=== PATIENT | female | born 2005 | race Hispanic/Latino ===

== ENCOUNTER 2023-08-14 15:56 | Emergency (ER) | payer OTHER ==
[~2023-08-14] VITALS: Ht 154.9 cm; Wt 72.6 kg
[2023-08-14 16:36] VITALS: BP 119/69; PULSE 97; RESP 16
[2023-08-14 17:49] LABS: BASOPHILS # (AUTO) 0.03 K/uL (0.00-0.20); BASOPHILS % (AUTO) 0.3 % (0.0-5.0); EOSINOPHILS # (AUTO) 0.12 K/uL (0.00-0.70); EOSINOPHILS % (AUTO) 1.3 % (0.0-8.0); HEMATOCRIT 36.4 % (36-48); IMMATURE GRANULOCYTE ABSOLUTE 0.01 K/uL (0-1); LYMPHOCYTES # (AUTO) 2.9 K/uL (1.0-4.8); LYMPHOCYTES % (AUTO) 32.3 % (21.0-51.0); MEAN CORPUSCULAR HEMOGLOBIN 26.1 pg (27.0-33.0); MEAN CORPUSCULAR VOLUME 79.3 fL (80-100); MONOCYTES # (AUTO) 0.4 K/uL (0.1-1.0); MONOCYTES % (AUTO) 4.9 % (3.0-13.0); NEUTROPHILS # (AUTO) 5.5 K/uL (1.8-7.7); NEUTROPHILS % (AUTO) 61.1 % (40.0-77.0); PLATELET COUNT (AUTO) 409 K/uL (130-400); RED BLOOD CELL COUNT(AUTO) 4.59 MIL/uL (4.00-5.50); RED CELL DISTRIBUTION WIDTH 13.7 % (11.0-15.5); WHITE BLOOD COUNT (AUTO) 8.9 K/uL (4.8-10.8)
[2023-08-14 17:56] LABS: CREATININE 0.6 mg/dL (0.5-1.0); POTASSIUM 3.8 mmol/L (3.5-5.1)
[2023-08-14 18:00] LABS: ALBUMIN 3.8 g/dL (3.5-5.0); BILIRUBIN,TOTAL 0.3 mg/dL (0.2-1.0); TOTAL PROTEIN, SERUM 7.2 g/dL (6.0-8.3)
[2023-08-14 18:37] LABS: APPEARANCE,URINE CLOUDY (CLEAR); BILIRUBIN,URINE NEGATIVE (NEGATIVE); COLOR,URINE LIGHT-YELLOW (YELLOW); GLUCOSE, URINE (UA) NEGATIVE (NEGATIVE); KETONES,URINE 20 mg/dL (NEGATIVE); LEUKOCYTE ESTERASE ,URINE NEGATIVE Leu/uL (NEGATIVE); NITRATE,URINE NEGATIVE (NEGATIVE); OCCULT BLOOD,URINE NEGATIVE (NEGATIVE); PH,URINE 7.5 (5.0-8.0); PROTEIN,URINE NEGATIVE (NEGATIVE); UROBILINOGEN,URINE 0.2 mg/dL (0.2-1.0)
[2023-08-14 18:44] LABS: ADD UA MICROSCOPIC YES
[2023-08-14 18:46] LABS: BACTERIA,URINE RARE /HPF (None Seen); HCG,QUALITATIVE URINE NEGATIVE (NEGATIVE); MUCUS,URINE RARE LPF (None Seen); SQUAMOUS EPITHELIAL CELL,UR FEW /HPF (0-2)
[2023-08-14] MEDS: 0.9%NACL 1000ML 1,000 ML IV ONE (19:08)
[2023-08-14] MEDS: ONDANSETRON 4MG INJ IVP ONE (19:09)
[2023-08-14] MEDS: MORPHINE 2 MG SYG IVP ONE (19:09)
[2023-08-14] MEDS ORDERED: IOHEXOL-350 75 ML VIAL IV ONE (19:46)
[2023-08-14] MEDS ORDERED: DICY20TA2 PO (19:47)
== END 2023-08-14 20:24 | disposition home or self-care (01) ==
LOC: EDH 15:56
DX: R10.33 Periumbilical pain (principal)
CPT/HCPCS: 99285; 74177; 96374; 96375; 80053; 83690; 85025; 87088; 81001; 81025; 36415; J2270; J7030; J2405; Q9967